=== PATIENT | female | born 1940 | race Two or more races ===

== ENCOUNTER 2018-10-20 16:48 | Inpatient (IN) | payer MEDICARE, OTHER, MEDICAID ==
[~2018-10-20] VITALS: Ht 160 cm; Wt 46.3 kg
--- NOTE | 2018-10-20 17:23 | NUR ---
PT BROUGHT IN FROM [facility] FOR C/C OF REFUSAL TO EAT PT MD RIDDLE. PT REFUSED PIV LABS DRAWN BY TECH
[2018-10-20] MEDS ORDERED: IV NS 0.9% 1,000 ML BAG IV ONE (17:30)
[2018-10-20 17:33] LABS: BASOPHILS # (AUTO) 0.1 /CMM (0.0-0.2); BASOPHILS % (AUTO) 1.1 % (0.0-2.0); EOSINOPHILS % (AUTO) 1.1 % (0.0-6.0); HEMATOCRIT 38 % (33-45); HEMOGLOBIN 13.3 g/dL (11.5-14.8); LYMPHOCYTES # (AUTO) 2.4 /CMM (0.8-4.8); MEAN CORPUSCULAR HGB CONC 35 g/dl (31.0-36.0); MEAN CORPUSCULAR VOLUME 94 fL (82-100); MONOCYTES # (AUTO) 0.5 /CMM (0.1-1.30); MONOCYTES % (AUTO) 7.5 % (2.0-12.0); NEUTROPHILS # (AUTO) 3.5 /CMM (1.8-8.9); NEUTROPHILS % (AUTO) 53.3 % (43.0-81.0); PLATELET COUNT (AUTO) 311 /CMM (150-450); RED BLOOD CELL COUNT(AUTO) 4.07 MIL/uL (4.0-5.2); WHITE BLOOD COUNT (AUTO) 6.5 K/uL (4.3-11.0)
--- NOTE | 2018-10-20 17:49 | NUR ---
GOT BED 114-2
[2018-10-20 17:56] LABS: ALANINE AMINOTRANSFERASE 14 U/L (12-78); ALKALINE PHOSPHATASE 66 U/L (46-116); ASPARTATE AMINOTRANSFERASE 15 U/L (15-37); BILIRUBIN,DIRECT 0.1 mg/dL (0.0-0.2); BILIRUBIN,TOTAL 0.4 mg/dL (0.2-1.0); CALCIUM, SERUM 9.4 mg/dL (8.5-10.1); CARBON DIOXIDE 26 mmol/L (21-32); CHLORIDE 105 mmol/L (98-107); CREATININE 1.2 mg/dL (0.6-1.3); GLUCOSE 93 mg/dL (74-106); LIPASE 238 U/L (73-393); SODIUM SERUM 141 mmol/L (136-145); UREA NITROGEN, BLOOD 24 mg/dL (7-18)
[2018-10-20] MEDS ORDERED: IV NS 0.9% 1,000 ML IV PRN (18:22)
--- NOTE | 2018-10-20 18:29 | NUR ---
PT REPORT GIVEN TO REBECCA WHITMAN PT ADMITTED TO ROOM 114-2 MD RIDDLE
[2018-10-20] MEDS ORDERED: Z GUARD REMEDY 2 OZ OINT TP PRN (18:30)
[2018-10-20] MEDS ORDERED: HYDROCODONE/APAP 5/325MG 1 EACH TABLET PO PRN (18:30)
[2018-10-20] MEDS ORDERED: ONDANSETRON HCL/PF 4 MG/2 ML VIAL IVP PRN (18:30)
[2018-10-20] MEDS ORDERED: ACETAMINOPHEN 325 MG TABLET PO PRN (18:30)
[2018-10-20] MEDS ORDERED: MAGNESIUM HYDROXIDE 30 ML UDC PO PRN (18:30)
[2018-10-20] MEDS ORDERED: MAG HYDROX/AL HYDROX/SIMETH 30 ML UDC PO PRN (18:30)
--- NOTE | 2018-10-20 19:10 | NUR ---
MS/RN INITIAL NOTES RECEIVED PT IN BED, A/OX2, ON ROOM AIR, TOLERATING WELL. NO C/O PAIN AT THIS TIME. PT HAS NO IV ACCESS, PER AM EODI, PT REFUSED TO HAVE IV ACCESS AT ER. VS TAKEN, PT REFUSED TO SKIN ASSESSMENT, PM CARE, CHANGE TO HOSPITAL GOWN, OFFERED TO START IV LINE. PT STRONGLY REFUSED DESPITE OF EXPLANATION OF RISKS AND BENEFITS. PER PT, "JUST LEAVE ME ALONE." WITNESSED BY RN RHINA SOOD. SAFETY MEASURES IN PLACED. CALL LIGHT WITHIN EASY REACH. WILL CONT TO MONITOR. WILL NOTIFIED
[2018-10-20 20:00] VITALS: BP 143/73
--- NOTE | 2018-10-20 20:55 | NUR ---
RN NOTES SPOKE WITH GRANULATING MACHINE OPERATOR CURT TAY, NOTIFIED GRANULATING MACHINE OPERATOR RE: PT REFUSING TO START AN IV LINE AND IV FLUIDS, SKIN ASSESSMENT, OTHER PHYSICAL ASSESSMENT. NO NEW ORDER MADE FROM GRANULATING MACHINE OPERATOR
[2018-10-20] MEDS: ZOLPIDEM TARTRATE 5 MG TABLET PO PRN (21:26)
[2018-10-20 22:00] VITALS: BP 143/73
--- NOTE | 2018-10-21 | NUR ---
MS J CARLOS INITIAL NOTES, RECEIVED PT IN BED, SLEEPING AT THIS TIME, BUT EASILY AROUSABLE TO TACTILE STIMULI, BREATHING EVEN AND UNLABORED, NO SOB/ACUTE DISTRESS NOTED AT THIS TIME NO C/O PAIN AT THIS TIME, PT HAS NO IV ACCESS, PER PRIOR SHIFT AWARE OF PATENT REFUSING IV, OFFERED TO START IV LINE AND PATIENT REFUSED, EXPLAIN RISKS AND BENEFITS X3, STILL REFUSED, "LET ME SLEEP! GHOST! THIS PEOPLE DON'T UNDERSTAND, LEAVE ME ALONE!" ALL NEEDS AND SAFETY MEASURES PROVIDED, CALL LIGHT WITHIN EASY REACH, WILL CONTINUE TO MONITOR CLOSELY. Addendum: 10/22/18 at 0345 by SONI CARLIN RN WRONG TIME/DATE CORRECT TIME 10/21/181944
[2018-10-21 04:00] VITALS: BP 114/68
--- NOTE | 2018-10-21 06:47 | NUR ---
RN NOTES PT IN STABLE CONDITION. NO ACUTE CHANGES NOTED THROUGHOUT SHIFT. SAFETY MEASURES OBSERVED AT ALL TIMES. ALL NEEDS ANTICIPATED. ENDORSED TO AM SHIFT RN FOR AL
[2018-10-21] MEDS: PANTOPRAZOLE 40 MG TABLET.DR PO SCH (07:40)
[2018-10-21 08:00] VITALS: BP 124/69
[2018-10-21 08:25] LABS: BASOPHILS # (AUTO) 0.1 /CMM (0.0-0.2); BASOPHILS % (AUTO) 1.1 % (0.0-2.0); EOSINOPHILS % (AUTO) 1.9 % (0.0-6.0); HEMATOCRIT 39 % (33-45); HEMOGLOBIN 13.3 g/dL (11.5-14.8); LYMPHOCYTES # (AUTO) 2.3 /CMM (0.8-4.8); LYMPHOCYTES % (AUTO) 47.4 % (20.0-44.0); MEAN CORPUSCULAR HGB CONC 34 g/dl (31.0-36.0); MEAN CORPUSCULAR VOLUME 94 fL (82-100); MONOCYTES # (AUTO) 0.4 /CMM (0.1-1.30); MONOCYTES % (AUTO) 7.5 % (2.0-12.0); NEUTROPHILS # (AUTO) 2.1 /CMM (1.8-8.9); NEUTROPHILS % (AUTO) 42.1 % (43.0-81.0); PLATELET COUNT (AUTO) 305 /CMM (150-450); RED BLOOD CELL COUNT(AUTO) 4.14 MIL/uL (4.0-5.2); WHITE BLOOD COUNT (AUTO) 4.9 K/uL (4.3-11.0)
[2018-10-21 08:44] LABS: CALCIUM, SERUM 9.2 mg/dL (8.5-10.1); CARBON DIOXIDE 28 mmol/L (21-32); CHLORIDE 107 mmol/L (98-107); GLUCOSE 76 mg/dL (74-106); PHOSPHORUS 3.2 mg/dL (2.5-4.9); POTASSIUM 3.9 mmol/L (3.5-5.1); SODIUM SERUM 143 mmol/L (136-145); UREA NITROGEN, BLOOD 23 mg/dL (7-18)
[2018-10-21 08:47] LABS: CHOLESTEROL 199 mg/dL (<200); HDL CHOLESTEROL 51 mg/dL (40-60); LDL 137 mg/dL (0-99); TRIGLYCERIDES 83 mg/dL (30-150)
[2018-10-21] MEDS ORDERED: [UNRECOGNIZED DRUG - OTHER] PO (14:35)
[2018-10-21] MEDS ORDERED: DOCU100C36 PO (14:35)
[2018-10-21] MEDS ORDERED: MIRT15TA PO (14:35)
[2018-10-21] MEDS ORDERED: CHOL200026 PO (14:35)
[2018-10-21] MEDS ORDERED: LIOT5TAB8 PO (14:35)
[2018-10-21] MEDS ORDERED: CLON0.5T12 PO (14:35)
[2018-10-21] MEDS ORDERED: FOLI1TAB16 PO (14:35)
[2018-10-21] MEDS ORDERED: BISA-79 PO (14:35)
[2018-10-21] MEDS ORDERED: ACET325T53 PO (14:35)
[2018-10-21] MEDS ORDERED: ARIP300S3 IM (14:35)
[2018-10-21 16:00] VITALS: BP_SYST 112; BP_SYST 120; BP_DIAS 67; BP_DIAS 73
[2018-10-21] MEDS: ENSURE ENLIVE 237 ML LIQUID (VANILLA) PO SCH (17:00)
[2018-10-21] MEDS: ENSURE CLEAR 237 ML LIQUID (MIX BERRY) PO SCH (17:53)
[2018-10-21] MEDS: ZOLPIDEM TARTRATE 5 MG TABLET PO PRN (19:03)
[2018-10-21] MEDS: POLYETHYLENE GLYCOL 3350 17 GM POWD.PACK PO SCH (21:56)
--- NOTE | 2018-10-22 04:00 | NUR ---
RN MS NOTES, PATIENT REFUSED VITAL SIGNS AT THIS TIME, EXPLAINED RISKS AND BENEFITS X3, STILL REFUSED, AWARE.
--- NOTE | 2018-10-22 06:50 | NUR ---
MS RN CLOSING NOTE, PATIENT IN BED SLEEPING AT THIS TIME, BUT EASILY AROUSABLE TO VERBAL STIMULI, NO SOB/ ACUTE DISTRESS NOTED AT THIS TIME, NO COMPLAIN OF PAIN OR DISCOMFORT AT THIS TIME, NO IV SITE, AWARE, REFUSED VS, ALL NEEDS PROVIDED, NO SIGNIFICANT CHANGE IN CONDITION THROUGHOUT THE NIGHT, CALL LIGHT WITHIN REACH, WILL ENDORSE TO ONCOMING SHIFT FOR CONTINUITY OF CARE.
[2018-10-22] MEDS: PANTOPRAZOLE 40 MG TABLET.DR PO SCH (07:30)
--- NOTE | 2018-10-22 07:40 | NUR ---
MS RN INITIAL NOTES Patient in bed, appears weak and pale. Oxygen sat 97% on RA, breakfast was served with poor appetite. NO IVC access, per report patients refusal MD was aware. Patient refused Am labs, will try again. Maintained safety, will cont to monitor.
[2018-10-22 08:00] VITALS: BP 122/72
[2018-10-22] MEDS: ENSURE CLEAR 237 ML LIQUID (MIX BERRY) PO SCH (08:00)
[2018-10-22] MEDS: ENSURE ENLIVE 237 ML LIQUID (VANILLA) PO SCH (09:00)
[2018-10-22 11:36] LABS: BASOPHILS # (AUTO) 0.1 /CMM (0.0-0.2); BASOPHILS % (AUTO) 1.1 % (0.0-2.0); EOSINOPHILS % (AUTO) 1.5 % (0.0-6.0); HEMATOCRIT 38 % (33-45); HEMOGLOBIN 13.2 g/dL (11.5-14.8); LYMPHOCYTES % (AUTO) 39.1 % (20.0-44.0); MEAN CORPUSCULAR HGB CONC 35 g/dl (31.0-36.0); MEAN CORPUSCULAR VOLUME 94 fL (82-100); MONOCYTES # (AUTO) 0.4 /CMM (0.1-1.30); MONOCYTES % (AUTO) 7.1 % (2.0-12.0); NEUTROPHILS # (AUTO) 2.6 /CMM (1.8-8.9); NEUTROPHILS % (AUTO) 51.2 % (43.0-81.0); PLATELET COUNT (AUTO) 341 /CMM (150-450); RED BLOOD CELL COUNT(AUTO) 4.05 MIL/uL (4.0-5.2)
[2018-10-22 11:49] LABS: CARBON DIOXIDE 26 mmol/L (21-32); CHLORIDE 107 mmol/L (98-107); CREATININE 1.1 mg/dL (0.6-1.3); GLUCOSE 104 mg/dL (74-106); MAGNESIUM 1.8 mg/dL (1.8-2.4); SODIUM SERUM 143 mmol/L (136-145); UREA NITROGEN, BLOOD 25 mg/dL (7-18)
[2018-10-22] MEDS ORDERED: ENSURE CLEAR 237 ML LIQUID (MIX BERRY) PO SCH (12:00)
--- NOTE | 2018-10-22 13:00 | NUR ---
HOME MEDICATION FOR RECON. INFORMED DR. RIDDLE.
[2018-10-22] MEDS: ENSURE ENLIVE CHOC 237 ML CAN PO SCH (17:00)
[2018-10-22] MEDS: HYDROCORTISONE CR 30 GM TUBE RC SCH (17:00)
[2018-10-22 17:35] VITALS: BP 128/67
--- NOTE | 2018-10-22 18:21 | NUR ---
MS RN CLOSING NOTES Patient remained appetite poor, supplement refused, am medication refused, new ordered anusol cream by GI refused. Risk and benefits explained, still refused. Non compliant with treatment and medication during the shift, MD is aware. Denies any pain, lab was drawn late due to refusal. Will endorse to oncoming RN.
[2018-10-22 20:00] VITALS: BP 112/66
--- NOTE | 2018-10-22 20:00 | NUR ---
RN INITIAL NOTES Received patient in bed. NO IVC access, per report patients refusal, MD was aware. Patient refused iv fluids. Maintained safety, will cont to monitor.
--- NOTE | 2018-10-22 21:00 | NUR ---
RN NOTES PT REFUSED 2100 MEDS. SHE REQUESTED SLEEP MEDICATION.
[2018-10-22] MEDS: POLYETHYLENE GLYCOL 3350 17 GM POWD.PACK PO SCH (21:03)
[2018-10-22] MEDS: ZOLPIDEM TARTRATE 5 MG TABLET PO PRN (21:06)
--- NOTE | 2018-10-23 07:00 | NUR ---
MS/RN INITIAL NOTES RECEIVED PT IN BED, A/OX2, ON ROOM AIR, TOLERATING WELL. NO C/O PAIN AT THIS TIME. PT HAS NO IV ACCESS, PT REFUSED TO HAVE IV ACCESS.SAFETY PRECAUTIONS IN PLACE CALL LIGHT WITHIN EASY REACH. WILL CONT TO MONITOR. WILL NOTIFIED
--- NOTE | 2018-10-23 07:28 | NUR ---
RN CLOSING NOTES Patient refused meds overnight, but requested sleeping pills, pt refused a bath and 0400 VS. Will endorse to oncoming RN.
[2018-10-23 08:00] VITALS: BP 118/71
[2018-10-23] MEDS: ENSURE ENLIVE CHOC 237 ML CAN PO SCH ×2 (08:28→12:38)
[2018-10-23] MEDS: PANTOPRAZOLE 40 MG TABLET.DR PO SCH (08:28)
[2018-10-23] MEDS: HYDROCORTISONE CR 30 GM TUBE RC SCH (08:29)
--- NOTE | 2018-10-23 12:24 | NUR ---
RACK ROOM WORKER NOTES REPORT GIVEN TO ZUHAIR WHITMAN @ [facility] [phone] PASSENGER REPRESENTATIVE @ [phone]
--- NOTE | 2018-10-23 14:09 | NUR ---
INVENTORY CONTROL ASSISTANT SPOKE WITH DAUGHTER SARAHY TO INFORM OF MOTHERS DISCHARGE BACK TO FACILITY. REFERRED CALL TO SISSY HAMMONDS FOR FURTHER INFORMATION
--- NOTE | 2018-10-23 15:04 | NUR ---
MICROBIOLOGY INSTRUCTOR DISCHARGE NOTES PATIENT LEFT UNIT VIA EMS ON [facility] PAPERS SIGNED ALL BELONGINGS ACCOUNTED FOR. NO IV ACCESS
== END 2018-10-23 15:00 | DRG 682 ==
LOC: ER 16:51 → MEDSG1 18:24
PROVIDERS: ADMIT Internal Medicine; ATTEND Internal Medicine
DX: N17.0 Acute kidney failure with tubular necrosis (principal); E43 Unspecified severe protein-calorie malnutrition; Z68.1 Body mass index [BMI] 19.9 or less, adult; K59.00 Constipation, unspecified; R62.7 Adult failure to thrive; F31.9 Bipolar disorder, unspecified; F20.9 Schizophrenia, unspecified; F03.90 Unspecified dementia, unspecified severity, without behavioral disturbance, psychotic disturbance, mood disturbance, and anxiety; Z66 Do not resuscitate; K64.9 Unspecified hemorrhoids; T50.905A Adverse effect of unspecified drugs, medicaments and biological substances, initial encounter; Y92.129 Unspecified place in nursing home as the place of occurrence of the external cause
CPT/HCPCS: 36415; 71045-TC; 74018; 80048-TC; 80061-TC; 80076-TC; 83690-TC; 83735-TC; 84100-TC; 84484-TC; 85025-TC; 87081-TC; A4606; G0378; Z7610

== ENCOUNTER 2019-09-20 19:40 | Emergency (ER) | payer MEDICARE, MEDICAID, OTHER ==
[~2019-09-20] VITALS: Ht 157.5 cm; Wt 46.3 kg
[~2019-09-20 19:40] MED LIST: ACET325T53 PO; ARIP300S3 IM; BISA-79 PO; CHOL200026 PO; CLON0.5T12 PO; DOCU100C36 PO; FOLI1TAB16 PO; LIOT5TAB9 PO; MIRT15TA PO; [UNRECOGNIZED DRUG - OTHER] PO
--- NOTE | 2019-09-20 19:45 | NUR ---
SWATHI FROM [facility], C/O GEN WEAKNESS, POOR ORAL INTAKE ALSO C/O VAGINAL AND RECTAL PAIN. PATIENT AOx3, NAD, BREATHING EVEN AND UNLABORED. TO ER BED 7, HOOKED TO MONITOR, CHANGED TO HOSP GOWN, AWAITING MD HUFFMAN.
--- NOTE | 2019-09-20 19:48 | NUR ---
dr rose at bedside
[2019-09-20] MEDS ORDERED: IV NS 0.9% 1,000 ML BAG IV ONE (20:00)
[2019-09-20 20:18] LABS: BASOPHILS # (AUTO) 0.1 /CMM (0.0-0.2); EOSINOPHILS % (AUTO) 1.4 % (0.0-6.0); HEMATOCRIT 44 % (33-45); HEMOGLOBIN 14.4 g/dL (11.5-14.8); LYMPHOCYTES # (AUTO) 2.9 /CMM (0.8-4.8); LYMPHOCYTES % (AUTO) 43.6 % (20.0-44.0); MEAN CORPUSCULAR HGB CONC 33 g/dl (31.0-36.0); MEAN CORPUSCULAR VOLUME 96 fL (82-100); MONOCYTES # (AUTO) 0.6 /CMM (0.1-1.30); MONOCYTES % (AUTO) 8.5 % (2.0-12.0); NEUTROPHILS % (AUTO) 45.5 % (43.0-81.0); PLATELET COUNT (AUTO) 288 /CMM (150-450); RED BLOOD CELL COUNT(AUTO) 4.58 MIL/uL (4.0-5.2); WHITE BLOOD COUNT (AUTO) 6.7 K/uL (4.3-11.0)
[2019-09-20 20:28] LABS: CALCIUM, SERUM 9.8 mg/dL (8.5-10.1); CARBON DIOXIDE 29 mmol/L (21-32); CHLORIDE 107 mmol/L (98-107); CREATININE 1.3 mg/dL (0.6-1.3); GLUCOSE 109 mg/dL (74-106); SODIUM SERUM 140 mmol/L (136-145); UREA NITROGEN, BLOOD 31 mg/dL (7-18)
--- NOTE | 2019-09-20 20:28 | NUR ---
urine sample sent to lab
[2019-09-20 20:30] LABS: BILIRUBIN,URINE Negative (NEGATIVE); BLOOD, URINE Negative Ery/uL (NEGATIVE); COLOR,URINE Yellow (YELLOW); KETONES,URINE Trace (NEGATIVE); LEUKOCYTE ESTERASE ,URINE Moderate (NEGATIVE); NITRITE, URINE Negative (NEGATIVE); PH,URINE 5.5 (5.0-8.0); PROTEIN,URINE Negative (NEGATIVE); UGLUCOSE Negative (NEGATIVE); UROBILINOGEN,URINE 0.2 EU/dL (0.2)
[2019-09-20 20:31] LABS: APPEARANCE,URINE SLIGHTLY HAZY (CLEAR)
[2019-09-20 20:34] LABS: ALANINE AMINOTRANSFERASE 20 U/L (12-78); ALBUMIN 3.5 g/dL (3.4-5.0); ALKALINE PHOSPHATASE 68 U/L (46-116); ASPARTATE AMINOTRANSFERASE 20 U/L (15-37); BILIRUBIN,DIRECT 0.1 mg/dL (0.0-0.2); BILIRUBIN,TOTAL 0.3 mg/dL (0.2-1.0); TOTAL PROTEIN, SERUM 7.4 g/dL (6.4-8.2)
[2019-09-20 20:59] LABS: BACTERIA,URINE Moderate /HPF (None Seen)
[2019-09-20 21:00] LABS: RBC,URINE 0-2 /HPF (0-2); SQUAMOUS EPITHELIAL CELL,UR Many /HPF (None Seen)
--- NOTE | 2019-09-20 22:54 | NUR ---
[facility] WAS CALLED; ETA ~ 2300. TICKET # TO FOLLOW
--- NOTE | 2019-09-20 23:41 | NUR ---
SPOKE TO SHYANNE TILLMAN/LISA NURSE OF [facility]. AWARE PATIENT IS BEING BROUGHT BACK TO THEIR FACILITY.
[2019-09-21 01:31] VITALS: BP 131/77
== END 2019-09-21 01:31 | disposition home or self-care (01) ==
LOC: ER 19:50
DX: K59.00 Constipation, unspecified (principal); R53.1 Weakness; R62.7 Adult failure to thrive; R10.84 Generalized abdominal pain; Z79.899 Other long term (current) drug therapy
CPT/HCPCS: 36415; 71045; 80048; 80076; 81001; 85025; 84484; 87086; 93005; 99284; J7030; 81000-TC

== ENCOUNTER 2024-02-12 19:13 | Inpatient (IN) | payer MEDICARE, OTHER ==
[~2024-02-12] VITALS: Ht 160 cm; Wt 70.3 kg
[~2024-02-12 19:13] MED LIST changes: -CLON0.5T12 PO; +CLON0.5T4 PO; +LIOT5TAB11 PO; -LIOT5TAB9 PO; +MIRT-121 PO; -MIRT15TA PO
[2024-02-12 19:46] LABS: BASOPHILS % (AUTO) 0.7 % (0.0-2.0); EOSINOPHILS # (AUTO) 0.1 K/uL (0.0-0.7); EOSINOPHILS % (AUTO) 2.2 % (0.0-6.0); HEMATOCRIT 39 % (33-45); HEMOGLOBIN 13.1 g/dL (11.5-14.8); LYMPHOCYTES # (AUTO) 2.1 K/uL (0.8-4.8); LYMPHOCYTES % (AUTO) 36.2 % (20.0-44.0); MEAN CORPUSCULAR HEMOGLOBIN 31 PG (26.0-33.0); MEAN CORPUSCULAR HGB CONC 33 g/dl (31.0-36.0); MEAN CORPUSCULAR VOLUME 93 fL (82-100); MONOCYTES # (AUTO) 0.5 K/uL (0.1-1.30); MONOCYTES % (AUTO) 8.6 % (2.0-12.0); NEUTROPHILS % (AUTO) 52.3 % (43.0-81.0); PLATELET COUNT (AUTO) 310 K/uL (150-450); RED BLOOD CELL COUNT(AUTO) 4.22 MIL/uL (4.0-5.2); RED CELL DISTRIBUTION WIDTH 12.9 % (11.5-15.0); WHITE BLOOD COUNT (AUTO) 5.7 K/uL (4.3-11.0)
[2024-02-12 20:14] LABS: CALCIUM, SERUM 9.4 mg/dL (8.5-10.1); CARBON DIOXIDE 28 mmol/L (21-32); CHLORIDE 105 mmol/L (98-107); CREATININE 1.4 mg/dL (0.6-1.3); GLUCOSE 101 mg/dL (74-106); POTASSIUM 4.3 mmol/L (3.5-5.1); SODIUM SERUM 140 mmol/L (136-145); UREA NITROGEN, BLOOD 30 mg/dL (7-18)
[2024-02-12 20:16] LABS: ALBUMIN 3.4 g/dL (3.4-5.0)
[2024-02-12 20:33] LABS: APPEARANCE,URINE CLEAR (CLEAR); BILIRUBIN,URINE NEGATIVE (NEGATIVE); BLOOD, URINE NEGATIVE Ery/uL (NEGATIVE); COLOR,URINE YELLOW (YELLOW); KETONES,URINE NEGATIVE (NEGATIVE); LEUKOCYTE ESTERASE ,URINE NEGATIVE (NEGATIVE); NITRITE, URINE NEGATIVE (NEGATIVE); PROTEIN,URINE NEGATIVE (NEGATIVE); UGLUCOSE NEGATIVE (NEGATIVE); UROBILINOGEN,URINE 0.2 EU/dL (0.2)
[2024-02-12 20:47] LABS: ALANINE AMINOTRANSFERASE 30 U/L (12-78); ALCOHOL, BLOOD < 3 mg/dL (0-10); ALKALINE PHOSPHATASE 96 U/L (46-116); ASPARTATE AMINOTRANSFERASE 25 U/L (15-37); BILIRUBIN,DIRECT 0.1 mg/dL (0.0-0.2); BILIRUBIN,TOTAL 0.3 mg/dL (0.2-1.0); TOTAL PROTEIN, SERUM 7.8 g/dL (6.4-8.2)
[2024-02-12 20:49] LABS: SALICYLATE 0.4 mg/dL (2.8-20.0)
[2024-02-12 21:20] VITALS: BP 136/66; TEMP 98.7; O2SAT 99
[2024-02-12 21:28] LABS: THYROID STIMULATING HORMONE 1.657 uIU/mL (0.358-3.74)
[2024-02-12] MEDS ORDERED: MAGNESIUM HYDROXIDE 30 ML UDC PO PRN (21:30)
[2024-02-12] MEDS ORDERED: MAG HYDROX/AL HYDROX/SIMETH 30 ML UDC PO PRN (21:30)
[2024-02-12] MEDS ORDERED: Z GUARD REMEDY 4 OZ OINT TP PRN (21:30)
[2024-02-12] MEDS ORDERED: ONDANSETRON HCL/PF 4 MG/2 ML VIAL IVP PRN (21:30)
[2024-02-12 21:40] LABS: ACETAMINOPHEN <10 ug/ml (10-30)
[2024-02-12 21:51] LABS: AMPHETAMINE, URINE NEGATIVE (NEGATIVE); BARBITURATE, URINE NEGATIVE (NEGATIVE); BENZODIAZEPINE, URINE NEGATIVE (NEGATIVE)
[2024-02-12 21:52] LABS: CANNABINOID, URINE NEGATIVE (NEGATIVE); COCCAINE, URINE NEGATIVE (NEGATIVE); OPIATE, URINE NEGATIVE (NEGATIVE); PHENCYCLIDINE SCREEN,URINE NEGATIVE (NEGATIVE)
[2024-02-12] MEDS: IV D5/0.45 NACL 1,000 ML IV PRN (21:58)
[2024-02-12] MEDS: ZOLPIDEM TARTRATE 5 MG TABLET PO PRN (22:07)
[2024-02-13] MEDS ORDERED: ACETAMINOPHEN 325 MG TABLET PO PRN ×2 (00:30→11:30)
[2024-02-13] MEDS: ACETAMINOPHEN 325 MG TABLET PO PRN (05:05)
[2024-02-13 06:52] LABS: BASOPHILS # (AUTO) 0.1 K/uL (0.0-0.2); BASOPHILS % (AUTO) 1.2 % (0.0-2.0); EOSINOPHILS # (AUTO) 0.1 K/uL (0.0-0.7); EOSINOPHILS % (AUTO) 2.1 % (0.0-6.0); HEMATOCRIT 34 % (33-45); HEMOGLOBIN 11.5 g/dL (11.5-14.8); LYMPHOCYTES # (AUTO) 2.6 K/uL (0.8-4.8); MEAN CORPUSCULAR HEMOGLOBIN 31 PG (26.0-33.0); MEAN CORPUSCULAR HGB CONC 34 g/dl (31.0-36.0); MEAN CORPUSCULAR VOLUME 94 fL (82-100); MONOCYTES # (AUTO) 0.6 K/uL (0.1-1.30); MONOCYTES % (AUTO) 8.3 % (2.0-12.0); NEUTROPHILS # (AUTO) 3.3 K/uL (1.8-8.9); NEUTROPHILS % (AUTO) 49.4 % (43.0-81.0); PLATELET COUNT (AUTO) 272 K/uL (150-450); RED BLOOD CELL COUNT(AUTO) 3.66 MIL/uL (4.0-5.2); RED CELL DISTRIBUTION WIDTH 13.1 % (11.5-15.0); WHITE BLOOD COUNT (AUTO) 6.8 K/uL (4.3-11.0)
[2024-02-13] MEDS ORDERED: MAG HYDROX/AL HYDROX/SIMETH 30 ML UDC PO PRN (07:00)
[2024-02-13 07:31] LABS: CALCIUM, SERUM 8.9 mg/dL (8.5-10.1); CARBON DIOXIDE 28 mmol/L (21-32); CHLORIDE 105 mmol/L (98-107); CREATININE 1.2 mg/dL (0.6-1.3); GLUCOSE 93 mg/dL (74-106); PHOSPHORUS 3.2 mg/dL (2.5-4.9); POTASSIUM 4.1 mmol/L (3.5-5.1); SODIUM SERUM 143 mmol/L (136-145); UREA NITROGEN, BLOOD 28 mg/dL (7-18)
[2024-02-13] MEDS: LIOTHYRONINE SODIUM (5 MCG/TA 5 MCG TABLET PO SCH (07:56)
[2024-02-13] MEDS: PANTOPRAZOLE 40 MG TABLET.DR PO SCH (07:56)
[2024-02-13 08:00] VITALS: BP 120/73; TEMP 97.3; O2SAT 97
[2024-02-13] MEDS ORDERED: CHOL100043 PO (08:14)
[2024-02-13] MEDS ORDERED: BISA10SU11 RC (08:14)
[2024-02-13] MEDS ORDERED: NA P133E RC (08:14)
[2024-02-13] MEDS ORDERED: ARIP15TA3 PO (08:14)
[2024-02-13] MEDS ORDERED: POLY17PO4 PO (08:14)
[2024-02-13] MEDS ORDERED: OMEG1CAP PO (08:14)
[2024-02-13] MEDS ORDERED: SIMV-46 PO (08:14)
[2024-02-13] MEDS ORDERED: ALBU18HF2 IH (08:14)
[2024-02-13] MEDS ORDERED: DOCU100C36 PO (08:14)
[2024-02-13] MEDS ORDERED: ACET-868 PO (08:14)
[2024-02-13] MEDS ORDERED: MAGN400O6 PO (08:14)
[2024-02-13] MEDS ORDERED: VENL37.55 PO (08:14)
[2024-02-13] MEDS: DOCUSATE SODIUM 100 MG CAPSULE PO SCH (08:25)
[2024-02-13] MEDS: FOLIC ACID 1 MG TABLET PO SCH (08:25)
[2024-02-13] MEDS: BISACODYL (5 MG) 5 MG TABLET.DR PO SCH (08:26)
[2024-02-13] MEDS: CHOLECALCIFEROL 1,000 UNIT TABLET (VIT D3) PO SCH (08:26)
[2024-02-13 08:52] LABS: THYROID STIMULATING HORMONE 2.152 uIU/mL (0.358-3.74)
[2024-02-13] MEDS ORDERED: ARIPIPRAZOLE 300 MG IM SCH (09:00)
[2024-02-13] MEDS ORDERED: BISACODYL SUPP (10 MG) 10 MG/SUPP.RECT SUPP.RECT RC PRN (11:30)
[2024-02-13] MEDS ORDERED: DOCUSATE SODIUM 100 MG CAPSULE PO PRN (11:30)
[2024-02-13] MEDS ORDERED: NA PHOS,M-B/NA PHOS,DI-BA 1 EA ENEMA RC PRN (11:30)
[2024-02-13] MEDS ORDERED: BISACODYL (5 MG) 5 MG TABLET.DR PO PRN (11:30)
[2024-02-13] MEDS ORDERED: ALBUTEROL FS 2.5 MG/0.5 ML VIAL.NEB NEB PRN (12:00)
[2024-02-13] MEDS: VENLAFAXINE XR 75 MG CAP.SR.24H PO SCH (13:07)
[2024-02-13 16:00] VITALS: BP 130/67; TEMP 98.3; O2SAT 95
[2024-02-13 20:00] VITALS: BP 156/73; TEMP 98.8; O2SAT 97
[2024-02-13] MEDS: SIMVASTATIN 20 MG TABLET PO SCH (21:11)
[2024-02-13] MEDS ORDERED: MIRTAZAPINE 15 MG TABLET PO SCH (22:00)
[2024-02-14 08:00] VITALS: BP 137/69; TEMP 98.4; O2SAT 94
[2024-02-14] MEDS: POLYETHYLENE GLYCOL 3350 17 GM POWD.PACK PO SCH (08:29)
[2024-02-14] MEDS: ARIPIPRAZOLE 5 MG TABLET PO SCH (08:30)
[2024-02-14] MEDS: CHOLECALCIFEROL 1,000 UNIT TABLET (VIT D3) PO SCH (08:31)
[2024-02-14 14:17] LABS: CREATININE, URINE 43.2 MG/DL (30.0-125.0)
[2024-02-14 16:00] VITALS: BP 135/68; TEMP 99; O2SAT 97
[2024-02-14 20:00] VITALS: BP 132/65; TEMP 98.5; O2SAT 96
[2024-02-15 07:00] VITALS: BP 139/74; TEMP 99.3; O2SAT 96
== END 2024-02-15 15:46 | DRG 640 ==
LOC: ER 19:43 → MED 21:09
PROVIDERS: ADMIT Student in an Organized Health Care Education/Training Program; ATTEND Nurse Practitioner Acute Care
DX: R62.7 Adult failure to thrive (principal); N17.0 Acute kidney failure with tubular necrosis; F02.83 Dementia in other diseases classified elsewhere, unspecified severity, with mood disturbance; E86.0 Dehydration; E03.9 Hypothyroidism, unspecified; Z20.822 Contact with and (suspected) exposure to COVID-19; Z86.61 Personal history of infections of the central nervous system; Z87.19 Personal history of other diseases of the digestive system; R53.1 Weakness; Z79.899 Other long term (current) drug therapy; F25.9 Schizoaffective disorder, unspecified; F31.9 Bipolar disorder, unspecified; E86.9 Volume depletion, unspecified; G30.9 Alzheimer's disease, unspecified; Z66 Do not resuscitate
CPT/HCPCS: 36415; 71045-TC; 80048-TC; 80076-TC; 82570-TC; 83735-TC; 84100-TC; 84300-TC; 84443-TC; 84484-TC; 85025-TC; 87081-TC; A4223; G0378; G0480; J3490; J7030